=== PATIENT | male | born 1940 | race Caucasian/White ===

== ENCOUNTER 2022-04-04 11:10 | Emergency (ER) | payer OTHER, BC ==
[2022-04-04 11:23] VITALS: BP 132/63; PULSE 86; RESP 19; TEMP 98; BMI 25.7
[2022-04-04] MEDS ORDERED: ALBUTEROL SO4 HFA INHALER IH ONE ×2 (12:26→12:29)
[2022-04-04 13:10] LABS: CALCIUM 8.8 mg/dL (8.5-10.1)
[2022-04-04 13:11] LABS: ALBUMIN 3.4 g/dl (3.4-5.0); BLOOD UREA NITROGEN 22.8 mg/dL (7-18)
[2022-04-04 13:14] LABS: CREATININE 1.1 mg/dL (0.55-1.3)
[2022-04-04 13:15] LABS: BILIRUBIN,TOTAL 1.1 mg/dL (0.2-1); TOT PROT 6.2 g/dl (6.4-8.2)
[2022-04-04 13:29] LABS: BASO % 0.3 % (0-2.0); EOS % 0.4 % (0-4.5); HEMATOCRIT 50.2 % (35.4-49); HEMOGLOBIN 16.6 GM/dL (11.7-16.9); LYMPH % 3.5 % (8-40); MCH 31.3 pg (25.7-33.7); MCHC 33.1 g/dl (32.0-35.9); MEAN CELL VOLUME 94.5 fl (80-96); MEAN PLT VOLUME 9.9 fl (7.5-11.1); NEUT % 84.8 % (42.8-82.8); PLATELET COUNT 159 10^3/uL (134-434); RBC 5.32 M/mm3 (4.00-5.60); RDW 13.3 % (11.9-15.9); WHITE BLOOD COUNT 5.2 K/mm3 (4.0-10.0)
[2022-04-04 14:42] LABS: PH,URINE 6.5 (5.0-8.0); URINE APPEARANCE CLEAR; URINE BILIRUBIN NEGATIVE (NEGATIVE); URINE COLOR DK YELLOW; URINE GLUCOSE (UA) NEGATIVE (NEGATIVE); URINE KETONE 1+ (NEGATIVE); URINE LEUK ESTERASE NEGATIVE (NEGATIVE); URINE NITRITE NEGATIVE (NEGATIVE); URINE PROTEIN TRACE (NEGATIVE)
== END 2022-04-04 15:06 | disposition home or self-care (01) ==
LOC: JER 11:10
DX: J20.4 Acute bronchitis due to parainfluenza virus (principal)
CPT/HCPCS: 0241U-QW; 36415; 71046-TC-FY; 80053; 81003; 84484; 85025; 87086; 93005; 93010; 99285-25